=== PATIENT | female | born 2000 | race Two or more races ===

== ENCOUNTER 2024-01-06 17:49 | Emergency (ER) | payer OTHER ==
[~2024-01-06] VITALS: Ht 162.6 cm; Wt 78.7 kg
[2024-01-06 18:30] VITALS: BP 105/78
== END 2024-01-06 18:32 | disposition home or self-care (01) ==
LOC: ED 17:49
DX: Z02.89 Encounter for other administrative examinations (principal); S51.812A Laceration without foreign body of left forearm, initial encounter; S50.811A Abrasion of right forearm, initial encounter; X78.9XXA Intentional self-harm by unspecified sharp object, initial encounter
CPT/HCPCS: 99283

== ENCOUNTER 2024-04-06 14:35 | Emergency (ER) | payer MEDICAID ==
[~2024-04-06] VITALS: Ht 162.6 cm; Wt 83.1 kg
[2024-04-06 16:44] VITALS: BP 116/86
== END 2024-04-06 16:49 | disposition home or self-care (01) ==
LOC: ED 14:35
DX: S90.02XA Contusion of left ankle, initial encounter (principal); S80.212A Abrasion, left knee, initial encounter; S80.211A Abrasion, right knee, initial encounter; W18.09XA Striking against other object with subsequent fall, initial encounter; Y92.85 Railroad track as the place of occurrence of the external cause
CPT/HCPCS: 73560; 73610; 84703; 99283